=== PATIENT | female | born 1975 | race African-American/Black ===

== ENCOUNTER 2025-02-23 21:25 | Day surgery (SDC) | payer OTHER, SELFPAY ==
[2025-02-23] VITALS (29 sets, daily range): BP systolic 102–140; BP diastolic 59–87; BMI 38.8
[2025-02-23 14:27] LABS: % Basophils 0.6 % (0-2); % Eosinophils 3.2 % (0-6); % Immature Granulocytes 0.2 % (0-0.5); % Lymphocytes 23.3 % (20.5-51.1); % Monocytes 10.6 % (1.7-9.3); % Neutrophils 62.1 % (42.2-75.2); Absolute Basophils 0.1 10^3/uL (0-0.2); Absolute Eosinophils 0.3 10^3/uL (0-0.7); Absolute Lymphocytes 2.4 10^3/uL (1.2-3.4); Absolute Monocytes 1.1 10^3/uL (0.1-0.6); Absolute Neutrophils 6.3 10^3/uL (1.4-6.5); Hematocrit 38.1 % (37.0-47.0); Mean Corp Hgb Conc. 34.1 g/dL (33.0-37.0); Mean Corpuscular Hgb 26.1 pg (27.0-31.0); Mean Corpuscular Volume 76.5 fL (81.0-99.0); Mean Platelet Volume 10.1 fL (7.4-10.4); Nucleated Red Blood Cells % 0 %; Platelet Count 275 10^3/uL (130-400); Red Blood Cell Count 4.98 10^6/uL (4.20-5.40); Red Cell Dist. Width 14.5 % (11.5-14.5); White Blood Cell Count 10.1 10^3/uL (4.8-10.8)
[2025-02-23 14:42] LABS: HCG, Serum Qualitative Screen Negative
[2025-02-23 14:54] LABS: ALT (SGPT) 22 U/L (0-35); AST (SGOT) 31 U/L (14-36); Albumin 4.1 g/dl (3.5-5.0); Alkaline Phosphatase 68 U/L (38-126); Blood Urea Nitrogen 15 mg/dl (7-17); Calcium 9.9 mg/dl (8.4-10.2); Carbon Dioxide 27 mmol/L (22-30); Chloride 104 mmol/L (98-107); Glucose 99 mg/dl (70-99); Lipase 131 U/L (23-300); Potassium 4.2 mmol/L (3.5-5.1); Sodium 139 mmol/L (135-145); Total Bilirubin 0.9 mg/dl (0.2-1.3); Total Protein 7.7 g/dl (6.3-8.2); eGFR > 60.00
[2025-02-23 15:18] LABS: Urine Albumin Negative (Neg - Trace); Urine Bilirubin Negative (Negative); Urine Character Clear (Clear); Urine Color Yellow; Urine Glucose Negative (Negative); Urine Ketone Negative (Negative); Urine Leukocyte 1+ (Negative); Urine Nitrite Negative (Negative); Urine Occult Blood 1+ (Negative); Urine Urobilinogen Negative (Neg - 1+); Urine pH 6.5 (5.0-9.0)
[2025-02-23 15:29] LABS: Urine Squamous Cell 16-20 /LPF (Few)
[2025-02-23 15:30] LABS: Urine Bacteria Few (Negative)
--- NOTE | 2025-02-23 15:57 | ED.GENMED ---
History of Present Illness
General
Chief Complaint: Abdominal Pain
Source: patient
Time Seen by Provider: 02/23/25 15:50
History of Present Illness
History of Present Illness:
49-year-old female presents to the emergency room complaining of abdominal pain. Patient states the pain began suddenly at about 1 PM. She was in her kitchen preparing dinner. The pain seemed to begin in the right lower quadrant. It was worse
with walking. The pain is increased in intensity. She denies any nausea, vomiting or urinary symptoms. She has irritable bowel syndrome so she does have periods of constipation and loose stools. She had 4 bowel movements this morning. She
denies any fever or chills. Patient has had a cholecystectomy as well as removal of her right ovary and removal of bilateral fallopian tubes. No history of trauma. Pain is worse with deep inspiration
Past History
Past History
ED Past Medical History: None
ED Past Surgical History: Cholecystectomy and Tonsilectomy
Social History
Tobacco: Non-smoker
Phy Exam
Physical Exam
Physical Exam:
General: Awake, Alert, Oriented X3. Appears uncomfortable
Vitals: unremarkable
Head: Atraumatic
Eyes: Pupils equal, EOMI
Throat: Airway intact, no exudates
Neck: Trachea midline
Lungs: Clear and equal b/l
Heart: Regular rate, no murmurs
Abd: Soft, diffuse significant tenderness to palpation, positive rebound, No pulsatile mass
Neuro: Nonfocal
Skin: Warm, dry, no rash
Extremities: pulses equal b/l, no edema
Course
Orders/Labs/Results
Orders:
Orders
02/23/25 14:16
Test Result ONCE
02/23/25 14:21
Complete Blood Count/With Diff Urgent
Comprehensive Metabolic Panel Urgent
HCG, Serum Qualitative Screen Urgent
Lipase Urgent
02/23/25 15:05
Urinalysis Reflex To Culture Urgent
Date Specimen was Collected: 02/23/25
Time Specimen was Collected: 14:16
Urine Microscopic Reflex Cult Urgent
Urine Culture Urgent
KUN Source: U
Specimen Description:
Date Specimen was Collected: 02/23/25
Time Specimen was Collected: 14:16
02/23/25 15:56
HYDROmorphone [Dilaudid] 1 mg IV NOW STA
Ondansetron Orally Disint [Zofran Odt (Orally Disintegrating)] 4 mg PO NOW STA
02/23/25 15:57
CT Abd/pelvis W Iv Cont Urgent
Comment:
Reason For Exam: sudden, severe diffuse abd pain, greatest rlq
02/23/25 17:24
HYDROmorphone [Dilaudid] 1 mg IV NOW STA
US Transvaginal [US Pelvis W Transvag Combined] Stat
Comment:
Reason For Exam: pelvic pain concern for lft ovarian torsion on CT.
02/23/25 20:48
Dexamethasone Sod Phosphate [Decadron] 20 mg .ROUTE .STK-MED ONE
Lidocaine 2% Mpf [Xylocaine Mpf 2%] 100 mg .ROUTE .STK-MED ONE
Ondansetron Injectable [Zofran] 4 mg .ROUTE .STK-MED ONE
Propofol [Diprivan] 20 ml .ROUTE .STK-MED
Rocuronium [place] [Rocuronium] 50 mg .ROUTE .STK-MED ONE
02/23/25 21:07
Fentanyl Citrate/Pf [Sublimaze] 100 mcg .ROUTE .STK-MED ONE
Midazolam HCl [Versed] 2 mg .ROUTE .STK-MED ONE
02/23/25 21:17
Type+Screen Stat
02/23/25 21:28
Clindamycin 900 mg/50 ml [Cleocin] 900 mg in 50 ml IV PRE PROCEDURE
02/23/25 21:29
HYDROmorphone [Dilaudid] 0.25 mg IV PACU-Q5MPRN PRN
HYDROmorphone [Dilaudid] 0.5 mg IV PACU-Q5MPRN PRN
Meperidine [Demerol] 12.5 mg IV PACU-Q5MPRN PRN
Ondansetron Injectable [Zofran] 4 mg IV PACU-ONCEPRN PRN
Notify MD As Directed
Notify physician if: for SDS patients with known or suspected sleep obstructive sleep apnea, monitor in the
PACU.
Notify MD for any apneic/desaturation episodes
O2 Therapy [RESP] Urgent
Titrate/Wean O2 to maintain O2 sat greater than (%): 92
Special Instructions: -Provide supplemental oxygen to achieve O2 sat of 92% or greater.
-After 15 min, may wean O2 and discontinue if patient is able to maintain O2 sat of 92%
or greater during recovery period.
If patient is a discharge home, without oxygen therapy, notify anestheiologist if
unable to maintain O2 SAT of 92% or greater on room air for MD clearance.
02/23/25 21:30
Normosol (Mult Electrolytes) [Normosol-R/Plasmalyte-A] 1,000 ml IV PER PROTOCOL
02/23/25 21:46
Bupivacaine 0.5%Pf/Epinephrin [Sensorcain-Mpf Epi 0.5%-0.0005] 30 ml .ROUTE .STK-MED ONE
02/23/25 21:55
ABO2 Stat
BBK Wristband Number:
Associate notified that ABO2 has been ordered: [facility] IN OR
Date: 02/23/25
Time: 21:23
Rotary Shear Cutter ID: [id number]
02/23/25 22:00
Flush (0.9% Sodium Chloride) [Flush (Nss)] See Dose Instructions IV PER PROTOCOL
02/23/25 22:11
Acetaminophen 1000MG/100Ml [Ofirmev] 1,000 mg in 100 ml .ROUTE .STK-MED
02/23/25 22:20
Rocuronium [place] [Rocuronium] 50 mg .ROUTE .STK-MED ONE
02/23/25 22:33
Sugammadex Sodium [Bridion] 200 mg .ROUTE .STK-MED ONE
02/23/25 22:38
Ketorolac [Toradol] 30 mg .ROUTE .STK-MED ONE
Ondansetron Injectable [Zofran] 4 mg .ROUTE .STK-MED ONE
02/23/25 22:39
Fentanyl Citrate/Pf [Sublimaze] 100 mcg .ROUTE .STK-MED ONE
Abnormal Lab Results
02/23/25 02/23/25
14:21 15:05
MCV 76.5 L fL
(81.0-99.0)
MCH 26.1 L pg
(27.0-31.0)
Absolute Monos (auto) 1.1 H 10^3/uL
(0.1-0.6)
Monocytes % 10.6 H %
(1.7-9.3)
Ur Occult Blood Reflex 1+ A
(Negative)
Leukocyte Esterase Rfl 1+ A
(Negative)
Urine RBC 3-6 A /HPF
(0-2)
Urine Bacteria (Reflex) Few A
(Negative)
02/23/25 14:21
02/23/25 14:21
Vital Signs
Initial and Last Documented VS:
Initial Vital Signs
Temp Pulse BP Pulse Ox
98.1 F 95 136/86 100
02/23/25 14:09 02/23/25 14:09 02/23/25 14:09 02/23/25 14:09
Last Documented Vital Signs
Temp Pulse Resp BP Pulse Ox
98.1 F 107 21 126/82 97
02/23/25 14:09 02/23/25 21:15 02/23/25 21:15 02/23/25 21:15 02/23/25 21:15
MDM/Problems Addressed
Differential Diagnosis Includes:
Hemorrhagic cyst, ovarian torsion, intra-abdominal bleeding from other sources, perforated viscus, appendicitis
MDM/Problems Addressed:
Patient presents with sudden onset of significant abdominal pain. She is tender diffusely. Primary suspicion was for an hemorrhagic cyst or some other intra-abdominal hemorrhage. Patient medicated with a milligram of IV Dilaudid and CT with IV
contrast ordered. I received a call from radiology that the patient has a complex left ovarian cyst or mass with significant surrounding stranding with high suspicion for torsion though a hemorrhagic cyst is also on the differential. She did have
a complex hemorrhagic cyst noted in 2020. However he notes more stranding around the ovary today. Patient has history of a right oophorectomy. I was notified of this finding at approximately 1720. [place] text sent to Dr. Martin who is on-call
for gynecology. Stat transvaginal ultrasound ordered. Patient's pain is not controlled with 1 mg of Dilaudid so additional medication will be provided
Ultrasound order was placed as a stat study. Ultrasound ultimately showed an enlarged left ovary measuring 9 x 5 x 6 cm. There is also a large cyst. No flow is observed within the ovary. Radiology interpretation is highly suspicious for torsion.
I again discussed this with Dr. Martin. She came in to evaluate the patient and ultimately decided to take the patient to the operating room.
*Radiology
Radiology exam reviewed: radiology read reviewed
*Pulse Oximetry
Patient hypoxic: no
*Critical Care Note
Total Time (30-74mins, 75-104mins- exclusive of procedures): 45 min
comment:
Critical care statement: A total of 45 minutes of critical care time was provided for this patient. This includes management of unstable vital signs, evaluation of the patient at bedside, reviewing the patient's pertinent medical records, discussion
with consultants, review of old EKGs and review of pertinent medical records. This time with separate from time utilized to perform the aforementioned documented procedures
ED Attending Note
-
Portions of this chart may have been created with voice recognition software.� Occasional wrong word or��sound alike� substitutions may have occurred due to the inherent limitations of voice recognition software.
Discharge Plan
Departure
Patient Disposition: Admit
Date of Disposition: 02/23/25
Time of Disposition: 20:06
Presentation/result/management discussed w/ accepting MD/DO: Dr. Martin
Condition: Fair
Discharge Problem:
Acute abdominal pain, Ovarian torsion
Interventions
Interventions:
*Risk Screen - Suicide Last Done: 02/23/25 14:13
*General Assessment Last Done: 02/23/25 14:13
*Neglect/Abuse Screening Last Done: 02/23/25 16:47
*ED- Fall Risk Assessment Last Done: 02/23/25 16:14
*ED COVID-19 Vaccine History Last Done: 02/23/25 16:14
*Nursing Disposition Last Done: 02/23/25 21:20
ZB-Zwqqdv-Xxihnxqxmo Assessment Last Done: 02/23/25 15:53
Discharge Date and Time
Discharge Date/Time: 02/23/25 21:20
[2025-02-23] MEDS: DILAUDID 1 MG IV ×2 (15:59→17:35)
[2025-02-23] MEDS: ZOFRAN ODT (ORALLY DISINTEGRATING) 4 MG PO (15:59)
--- NOTE | 2025-02-23 20:56 | W.PN.UPDATE ---
Update Note
Progress Note Update
Pt was seen and evaluated. Left ovarian torsion by pelvic u/s. Needs to go to the OR. OR team called in. Consent signed. H +P dictated
--- NOTE | 2025-02-23 23:21 | SUR.PHASEI ---
REc'd pt on stretcher in PACU prior to RN arrival, anesthesia and METAL TUBE CUTTER with pt, snoring loudly, arouses with stimuli, oriented x 3 by RN, reassured, denies c/o
--- NOTE | 2025-02-23 23:26 | SUR.PHASEI ---
More alert, quickly returns to sleep , states no pain
--- NOTE | 2025-02-23 23:35 | SUR.PHASEI ---
Fina n/c well called
--- NOTE | 2025-02-23 23:54 | SUR.PHASEI ---
More alert, quickly falls back to sleep,
[2025-02-24] VITALS: BP 104/66
== END 2025-02-24 00:50 | disposition home or self-care (01) ==
LOC: SDS 21:25
PROVIDERS: ATTENDING PHYSICIAN Obstetrics & Gynecology Gynecology; EMERGENCY PHYSICIAN Emergency Medicine; FAMILY PHYSICIAN Family Medicine
DX: N80.30 Endometriosis of pelvic peritoneum, unspecified (principal); Z90.721 Acquired absence of ovaries, unilateral; Z90.79 Acquired absence of other genital organ(s)
CPT/HCPCS: 49320; 74177; 76830; 76856; 80053; 81003; 81015; 83690; 84703; 85025; 86850; 86900; 86901; 87086; 96374; 96376; 99291; Q9967

== ENCOUNTER 2025-05-01 22:38 | Emergency (ER) | payer OTHER, SELFPAY ==
[2025-05-01 22:41] VITALS: BP 139/78
[2025-05-01 23:16] VITALS: BP 120/77
[2025-05-01 23:17] VITALS: BP 133/76
[2025-05-01 23:18] VITALS: BP 137/77
[2025-05-01 23:20] VITALS: BP 127/69
[2025-05-01 23:21] VITALS: BP 120/77; BP 133/76; BP 137/77; PULSE 83; PULSE 90
[2025-05-01 23:30] LABS: % Basophils 0.6 % (0-2); % Immature Granulocytes 0.1 % (0-0.5); % Lymphocytes 25.3 % (20.5-51.1); % Monocytes 12.6 % (1.7-9.3); % Neutrophils 59.4 % (42.2-75.2); Absolute Basophils 0.1 10^3/uL (0-0.2); Absolute Eosinophils 0.2 10^3/uL (0-0.7); Absolute Lymphocytes 2.5 10^3/uL (1.2-3.4); Absolute Monocytes 1.2 10^3/uL (0.1-0.6); Absolute Neutrophils 5.8 10^3/uL (1.4-6.5); Hematocrit 36.6 % (37.0-47.0); Hemoglobin 11.8 g/dL (12.0-16.0); Mean Corp Hgb Conc. 32.2 g/dL (33.0-37.0); Mean Corpuscular Volume 77.5 fL (81.0-99.0); Mean Platelet Volume 10.2 fL (7.4-10.4); Nucleated Red Blood Cells % 0 %; Platelet Count 351 10^3/uL (130-400); Red Blood Cell Count 4.72 10^6/uL (4.20-5.40); Red Cell Dist. Width 14.8 % (11.5-14.5); White Blood Cell Count 9.7 10^3/uL (4.8-10.8)
[2025-05-01 23:51] LABS: ALT (SGPT) 32 U/L (0-35); AST (SGOT) 31 U/L (14-36); Albumin 4.5 g/dl (3.5-5.0); Alkaline Phosphatase 75 U/L (38-126); Blood Urea Nitrogen 22 mg/dl (7-17); Calcium 9.9 mg/dl (8.4-10.2); Carbon Dioxide 24 mmol/L (22-30); Chloride 108 mmol/L (98-107); Glucose 97 mg/dl (70-99); Potassium 3.6 mmol/L (3.5-5.1); Sodium 142 mmol/L (135-145); Total Bilirubin 0.7 mg/dl (0.2-1.3); Total Protein 7.8 g/dl (6.3-8.2); eGFR > 60.00
[2025-05-02 00:02] LABS: NT-proBNP 23.7 pg/ml; Troponin I < 0.012 ng/ml
--- NOTE | 2025-05-02 00:50 | ED.GENMED ---
History of Present Illness
General
Chief Complaint: Fainting Sensation
Source: patient
Exam Limitations: none
Time Seen by Provider: 05/01/25 22:48
Nursing documentation reviewed up to this point in time: agreed with
History of Present Illness
History of Present Illness:
Note:
CHIEF COMPLAINT(S)
Dizziness and left arm pain.
HISTORY OF PRESENT ILLNESS
The patient is a 49-year-old female with a history of dizziness and left arm pain for approximately one year. These symptoms occur predominantly when transitioning from a sitting to a standing position, leading to a loss of balance and a shooting
pain down the left arm. There is no associated chest pain. The episodes have increased in frequency over the last two months, occurring two to three times in the past month, and once in the last week. The patient reports additional symptoms
including shortness of breath, an increase in headaches, and a black floater in the left eye for about a week. There is a history of feverish sensations without a recorded fever, nausea, and a recent bout of cough for two days, managed with
albuterol. The patient denies any exacerbations when lying down or during physical activity such as walking.
ADDITIONAL HISTORY OBTAINED FROM SOURCES OTHER THAN THE PATIENT
Per spouse, the patient has experienced occasional shortness of breath and an unusual cough.
CHRONIC MEDICAL CONDITIONS SIGNIFICANTLY AFFECTING CARE
Chronic conditions affecting care: Irritable Bowel Syndrome (IBS).
SOCIAL DETERMINANTS AFFECTING HEALTH
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
PAST MEDICAL HISTORY
The patient takes vitamin B12, 50,000 IU of vitamin D weekly, and a cholesterol-lowering medication.
FAMILY HISTORY
The patients father had cardiovascular disease, kidney disease (stage five), multiple strokes, diabetes, and a history of cancer. He a few months ago.
SOCIAL HISTORY
The patient denies smoking and excessive alcohol use.
MEDICATIONS
Albuterol, vitamin B12, vitamin D 50,000 IU weekly, and a cholesterol medication.
REVIEW OF SYSTEMS
- Neurological: Dizziness upon standing, headaches, left eye floater.
- Cardiovascular: No chest pain, some shortness of breath.
- Respiratory: Recent cough, managed with albuterol.
- Gastrointestinal: Nausea reported.
- General: Feverish sensation without actual fever.
PHYSICAL EXAM
Nursing notes reviewed and vital signs reviewed.
PLAN
A CT scan of the brain with a focus on vessel assessment and orthostatic vital signs evaluation will be conducted.
DIFFERENTIAL DIAGNOSIS
The Differential Diagnosis includes, in no particular order and is not limited to:
1. Orthostatic hypotension
2. Transient ischemic attack
3. Vestibular disorder
4. Cervical radiculopathy
5. Migraine
6. Anemia
7. Anxiety disorder
8. Cardiac arrhythmia
9. Labyrinthitis
10. Hypertension
CARE-UPDATE
05/02/25 - 03:24
Patient is set for discharge with follow-up care. Scheduled follow-up with cardiology and family doctor arranged to obtain a Holter monitor for ongoing cardiac evaluation.
Disposition:
SUMMARY OF ENCOUNTER
49-year-old female presents with near-syncopal events and lightheadedness after standing, ongoing for approximately a year with recent symptom escalation.
DISPOSITION
Patient is set for discharge with plans for outpatient follow-up.
MANAGEMENT OF THE PATIENTS CARE WAS DISCUSSED WITH
The patients care was discussed with her family doctor and principal quality engineer for follow-up and further evaluation.
PLAN
Follow up with family doctor to obtain a Holter monitor and follow-up with cardiology for further cardiac evaluation.
INDEPENDENT REVIEW OF LABS AND INTERPRETATION OF TESTS
My independent interpretation of the CT angiogram of the head and neck revealed no remarkable findings.
MEDICAL DECISION MAKING
1. Number & Complexity of Problems:
- Chronic conditions affecting care: Irritable Bowel Syndrome.
- Differential diagnoses considered include orthostatic hypotension, transient ischemic attack, vestibular disorder, cervical radiculopathy, migraine, anemia, anxiety disorder, cardiac arrhythmia, labyrinthitis, and hypertension.
2. Data Reviewed:
- Category 1: CT angiogram of the head and neck reviewed with negative findings.
3. Risk: Consideration of admission/observation was made due to complexity/risk. However, outpatient management is appropriate based on reassuring work-up, stable vitals, symptom control, and follow-up reliability.
PATIENT EDUCATION AND COUNSELING
Patient was counseled on the importance of follow-up appointments for further cardiac evaluation.
FOLLOW-UP INSTRUCTIONS
Follow up with the family doctor and principal quality engineer for further evaluation and possible Holter monitor testing.
PATHOLOGIES TO CONSIDER
- Orthostatic hypotension
- Cardiac arrhythmia
- Transient ischemic attack
- Vestibular disorder
Past History
Past History
ED Past Medical History: None
ED Past Surgical History: Cholecystectomy and Tonsilectomy
Social History
Tobacco: Non-smoker
Review of Systems
Review of Systems
Allergies reviewed?: Yes
All Other Systems: ROS reviewed and negative except as documented in HPI and ROS
Cardiac: Reports other (Near syncope)
Psychiatric: Reports anxiety
Phy Exam
General Physical Exam
General Presentation: well appearing and no apparent distress
General Skin: warm and dry
General Habitus: normal
General Mental: alert
General Hydration: appears well hydrated
ENT Exam
ENT Exam: EOMI, pharynx normal, neck supple and normocephalic
Eye Exam
Eye Exam: PERRL, cornea clear and conjunctiva normal
Cardiovascular Exam
Cardiovascular Exam: regular rate/rhythm, no edema, no murmur and normal peripheral pulses
Pulmonary Exam
Pulmonary Exam: lungs clear, no respiratory distress, no rales, no crackles, no rhonchi, no stridor, no wheezing and no cough
Gastrointestinal Exam
Gastrointestinal Exam: normal bowel sounds, non tender, soft, no organomegaly, no pulsatile mass and non distended
Neurological Exam
Neurological Exam: alert, oriented x3, no motor deficits and speech normal
Musculoskeletal Exam
Musculoskeletal Exam: full ROM and no edema
Skin Exam
Skin Exam: normal color, warm/dry, no rash and no petechia
Psychiatric Exam
Psychiatric Exam: normal mood/affect
Course
Orders/Labs/Results
Orders:
Orders
05/01/25 22:40
Electrocardiogram (*1) Urgent
Reason for Study: Other
Other Reason for Exam: Respiratory Distress
Cardiac Monitoring- Treatment ONCE
EKG- Treatment ONCE
IV Insert/Care/Rem.- Treatment PRN
CR Chest - 2 Views Urgent
Comment:
Reason For Exam: respiratory distress
O2 Therapy [RESP] Urgent
Titrate/Wean O2 to maintain O2 sat greater than (%): 93
Special Instructions: TO MAINTAIN CONTINUOUS O2 SATS >/= 93%
Pulse Ox/cont/shift [RESP] Urgent
Quantity: 1
Special Instructions: continuous pulse ox
05/01/25 23:12
CT Head & Neck Angio W/wo IV Urgent
Comment:
Reason For Exam: dizziness, lightheadedness, left neck pain
Orthostatic VS- Treatment ONCE
05/01/25 23:20
Complete Blood Count/With Diff Urgent
Comprehensive Metabolic Panel Urgent
NT-proBNP Urgent
Troponin I Urgent
05/02/25 01:09
0.9% Sodium Chloride 1000 ml [Nss] 1,000 ml IV BOLUS
Abnormal Lab Results
05/01/25
23:20
Hgb 11.8 L g/dL
(12.0-16.0)
Hct 36.6 L %
(37.0-47.0)
MCV 77.5 L fL
(81.0-99.0)
MCH 25.0 L pg
(27.0-31.0)
MCHC 32.2 L g/dL
(33.0-37.0)
RDW 14.8 H %
(11.5-14.5)
Absolute Monos (auto) 1.2 H 10^3/uL
(0.1-0.6)
Monocytes % 12.6 H %
(1.7-9.3)
Chloride 108 H mmol/L
(98-107)
BUN 22 H mg/dl
(7-17)
05/01/25 23:20
05/01/25 23:20
Vital Signs
Initial and Last Documented VS:
Initial Vital Signs
Temp Pulse Resp BP Pulse Ox
97.9 F 89 18 139/78 100
05/01/25 22:41 05/01/25 22:41 05/01/25 22:41 05/01/25 22:41 05/01/25 22:41
Last Documented Vital Signs
Temp Pulse Resp BP Pulse Ox
97.9 F 82 16 127/69 96
05/01/25 22:41 05/02/25 02:30 05/02/25 02:30 05/01/25 23:20 05/02/25 02:30
*Pulse Oximetry
SaO2: 99
Oxygen Mode of Delivery: Room air
*Critical Care Note
Total Time (30-74mins, 75-104mins- exclusive of procedures): Not Applicable
Update Note
Update Note:
NAME: EMMA GREY
DATE OF EXAM: 05/02/2025
Patient No: [id number]
Physician: SHAQ
Date of : 1975
Past Medical History (entered by Technologist):
Reason For Exam (entered by Technologist): headaches, dizzy, lt arm pain for 1 yrs
Other Notes (entered by Technologist): per pt has severe sinus and seasonal allergy issues
no priors
Additional Information (per Vision Radiologist):
CT HEAD, CTA HEAD, CTA NECK
IMPRESSION:
HEAD:
No intracranial hemorrhage, herniation, or hydrocephalus.
No calvarial fracture.
CTA HEAD:
No large vessel occlusion or critical stenosis within the anterior or posterior circulation.
CTA NECK:
No large vessel occlusion or critical stenosis within the anterior or posterior circulation.
Case finalized on May 02 2025 12:45AM ET
ED Attending Note
-
Portions of this chart may have been created with voice recognition software.� Occasional wrong word or��sound alike� substitutions may have occurred due to the inherent limitations of voice recognition software.
Discharge Plan
Departure
Patient Disposition: Home (Routine Discharge)
Date of Disposition: 05/02/25
Time of Disposition: 03:12
Patient with high blood pressure during this ER visit?: Yes
Discharge Problem:
Near syncope
Instructions: Near Fainting (DC), BLOOD PRESSURE
[facility] [[facility]]
Karan Weiss DO [Family Provider, Family Practice]
Activity Restrictions/Additional Instructions:
Please follow-up with your family doctor to continue to monitor your near-syncope. Possibly getting a Holter monitor may help with your diagnosis
Thank You for choosing [facility].
It was a pleasure meeting you and taking part in your care. We hope for your continued healing and wellness.
Please read discharge instructions in their entirety. However, they are for general education and may not describe your exact diagnosis at discharge. Information on your ER visit and medical conditions were discussed with you along with appropriate
follow up information...
If indicated, please take your medications as instructed and indicated on discharge paperwork.
Please schedule a follow up appointment as directed. Call to schedule an appointment
Please return to the emergency department with ANY change in, persisting, or worsening of symptoms. If any of your symptoms do not improve, or persist, or become more severe within 6-12 hours, please return to the emergency department for further
care.
Please return to the emergency department if you develop a headache, neck pain/stiffness, fever greater than 100.4F, chest pain, shortness of breath, persistent nausea, vomiting, slurred speech, difficulty walking, numbness/tingling, weakness, signs
of infection or any other symptoms that are worrisome to you.
If you have any questions or concerns please do not hesitate to call the Hospital at or E-mail me directly at [email or web address]
Interventions
Interventions:
*Risk Screen - Suicide Last Done: 05/01/25 22:41
*General Assessment Last Done: 05/01/25 23:29
*Neglect/Abuse Screening Last Done: 05/01/25 22:41
*ED- Fall Risk Assessment Last Done: 05/01/25 23:29
*ED COVID-19 Vaccine History Last Done: 05/01/25 23:29
*Nursing Disposition Last Done: 05/02/25 03:24
ED- Cardiac Assessment Last Done: 05/01/25 23:29
ED- Neurological Assessment Last Done: 05/01/25 23:29
Discharge Date and Time
Discharge Date/Time: 05/02/25 03:26
Print Language: MONGOLIAN
[2025-05-02] MEDS: NSS 1000 IV (01:48)
== END 2025-05-02 03:26 | disposition home or self-care (01) ==
LOC: EMR 22:38
PROVIDERS: EMERGENCY PHYSICIAN Student in an Organized Health Care Education/Training Program; FAMILY PHYSICIAN Family Medicine
DX: R55 Syncope and collapse (principal); R42 Dizziness and giddiness; I45.10 Unspecified right bundle-branch block; K58.9 Irritable bowel syndrome, unspecified
CPT/HCPCS: 99285; 96360; 70496; 70498; 71046; 80053; 83880; 84484; 85025; 93005; Q9967